=== PATIENT | male | born 1950 | race Caucasian/White ===

== ENCOUNTER 2017-11-01 21:29 | Inpatient (IN) | payer MEDICARE ==
[~2017-11-01] VITALS: Ht 177.8 cm; Wt 68.0 kg
--- NOTE | 2017-11-01 22:00 | NUR ---
GPSRN BROUGHT IN VIA AMBULANCE FROM [facility] FOR PATIENT'S BIZARRE BEHAVIOR. CONFUSED, DISORIENTED, ALTHOUGH COOPERATIVE. APPEARS ANXIOUS. ABLE TO ANSWER SOME QUESTIONS AND SOME HISTORY. STATED [place] NO FAMILY CONTACT PROVIDED. DENIES ANY MEDICAL HX EXCEPT HTN AND DM. UNABLE TO REMEMBER BP MEDS HE TAKES. NO MED RECON OBTAINED. SCATTERED DRY WOUNDS SEEN, PICTURED, REFUSED TO HAVE TOTAL BODY ASSESSMENT. AGREED ONLY TO PICTURES TAKEN ON HIS BACK, THIGHS , NECK, AND FACE., HEAD OCCIPITAL AREA.REFUSED TO REMOVE UNDERWEAR FOR FURTHER SKIN ASSESSMENT. SEEN ANTONI FURTHER DRY SCABS ON HIS LEFT SHOULDER, REFUSED TO HAVE PICTURE TAKEN. ONLY ON LIMITED AREAS. PROVIDED LATE SNACKSDINNER, ATE WELL.
[2017-11-01 22:30] VITALS: BP 170/91
[2017-11-01 22:35] VITALS: BP 170/91
[2017-11-01] MEDS ORDERED: LORAZEPAM 0.5 MG TABLET PO PRN (23:30)
[2017-11-01] MEDS ORDERED: MAGNESIUM HYDROXIDE 30 ML UDC PO PRN (23:30)
[2017-11-01] MEDS ORDERED: MAG HYDROX/AL HYDROX/SIMETH 30 ML UDC PO PRN (23:30)
[2017-11-01] MEDS ORDERED: ACETAMINOPHEN 325 MG TABLET PO PRN (23:30)
--- NOTE | 2017-11-02 00:15 | NUR ---
GPSRN ASLEEP, CLOSELY WATCHED.
--- NOTE | 2017-11-02 03:07 | NUR ---
GPSRN AWAKENED, NO NEEDS MADE. REMINDED OF TIME FRAME, WENT BACK TO HIS ROOM.
--- NOTE | 2017-11-02 06:30 | NUR ---
GPSRN REFUSED BLOOD DRAW. CN NOTIFIED. AGREED TO HAVE MRSA SWAB. WENT BACK TO SLEEP.
[2017-11-02 08:53] VITALS: BP 155/90
[2017-11-02 10:06] LABS: ALBUMIN 2.5 g/dL (3.4-5.0); BILIRUBIN,TOTAL 0.2 mg/dL (0.2-1.0); CALCIUM, SERUM 8.6 mg/dL (8.5-10.1); POTASSIUM 4.1 mmol/L (3.5-5.1); TOTAL PROTEIN, SERUM 7.5 g/dL (6.4-8.2)
--- NOTE | 2017-11-02 12:13 | NUR ---
WOUND CARE CONSULT: PT IS AMBULATORY AND CONTINENT. LIMITED ASSESSMENT OF SKIN TODAY DUE TO PT REFUSAL TO HAVE BUTTOCKS ASSESSED. PT NOTED TO HAVE MULTIPLE DRY SCABS. PT STATES THAT HE SCRATCHES HIS SKIN. FLAKES AND SCABS NOTED IN PT'S HAIR. DEFER TO . WILL SEE PRN. Addendum: 11/02/17 at 1214 by NIKI SALINAS WNDNU Amended: Links added.
[2017-11-02 16:00] VITALS: BP 157/93
[2017-11-02] MEDS: BENZTROPINE MESYLATE (1 MG) 1 MG TABLET PO SCH (16:32)
[2017-11-02] MEDS ORDERED: HALOPERIDOL 5 MG TABLET PO SCH (17:00)
[2017-11-02] MEDS: HALOPERIDOL 5 MG TABLET PO SCH (17:00)
--- NOTE | 2017-11-02 17:30 | NUR ---
GPS/RN PATIENT ADAMANTLY REFUSED HALDOL 5 MG X 3, EXPLAINED RISKS AND BENEFITS, WILL CONTINUE TO ENCOURAGE TO COMPLY WITH MD REGIMEN.
[2017-11-02 20:39] VITALS: BP 130/76
[2017-11-02] MEDS: TEMAZEPAM 7.5 MG CAPSULE PO PRN (21:54)
[2017-11-03 07:20] LABS: BASOPHILS % (AUTO) 0.5 % (0.0-2.0); EOSINOPHILS % (AUTO) 8.3 % (0.0-6.0); HEMATOCRIT 32 % (39-51); HEMOGLOBIN 10.8 g/dL (13.5-17.5); LYMPHOCYTES % (AUTO) 14.3 % (20.0-44.0); MEAN CORPUSCULAR HGB CONC 33 g/dl (31.0-36.0); MEAN CORPUSCULAR VOLUME 81 fL (80-96); MONOCYTES # (AUTO) 0.7 /CMM (0.1-1.30); MONOCYTES % (AUTO) 8.9 % (2.0-12.0); PLATELET COUNT (AUTO) 250 /CMM (150-450); RDW COEFFICIENT OF VARIATION 15.7 (11.5-15.0); RED BLOOD CELL COUNT(AUTO) 3.98 MIL/uL (4.5-6.0); WHITE BLOOD COUNT (AUTO) 7.3 K/uL (4.3-11.0)
[2017-11-03 07:46] LABS: CALCIUM, SERUM 8.6 mg/dL (8.5-10.1); POTASSIUM 3.9 mmol/L (3.5-5.1)
[2017-11-03 08:00] VITALS: BP 151/94
[2017-11-03] MEDS: HALOPERIDOL 5 MG TABLET PO SCH ×2 (09:00→17:02)
[2017-11-03] MEDS: BENZTROPINE MESYLATE (1 MG) 1 MG TABLET PO SCH ×2 (09:34→17:03)
[2017-11-03] MEDS: AMLODIPINE BESYLATE 5 MG TABLET PO SCH (09:35)
[2017-11-03 14:54] LABS: APPEARANCE,URINE CLEAR (CLEAR); BILIRUBIN,URINE NEGATIVE (NEGATIVE); BLOOD, URINE NEGATIVE Ery/uL (NEGATIVE); COLOR,URINE YELLOW (YELLOW); KETONES,URINE NEGATIVE (NEGATIVE); LEUKOCYTE ESTERASE ,URINE NEGATIVE (NEGATIVE); NITRITE, URINE NEGATIVE (NEGATIVE); PH,URINE 5.5 (5.0-8.0); PROTEIN,URINE NEGATIVE (NEGATIVE); UGLUCOSE NEGATIVE (NEGATIVE); UROBILINOGEN,URINE 0.2 EU/dL (0.2)
[2017-11-03 16:00] VITALS: BP 147/83
[2017-11-03 20:24] VITALS: BP 166/85
[2017-11-04 08:00] VITALS: BP 141/88
[2017-11-04] MEDS: AMLODIPINE BESYLATE 5 MG TABLET PO SCH (08:30)
[2017-11-04] MEDS: HALOPERIDOL 5 MG TABLET PO SCH ×2 (08:30→16:15)
[2017-11-04] MEDS: BENZTROPINE MESYLATE (1 MG) 1 MG TABLET PO SCH ×2 (08:30→16:15)
--- NOTE | 2017-11-04 10:28 | NUR ---
INITIAL DISCHARGE PLAN: Pt is homeless and stated "I want to remain where I am; I don't want to go to a senior care or a residential." SW will help form a safe and proper discharge in collaboration with MD.
--- NOTE | 2017-11-04 10:29 | NUR ---
DARLING faxed referral packet to [facility] Address: [address] [place] [address] fax: [phone].
[2017-11-04] MEDS: VITAMINS A AND D 56.7 GM TUBE TP PRN (12:17)
[2017-11-04 16:00] VITALS: BP 150/97
[2017-11-04 20:00] VITALS: BP 149/79
[2017-11-04] MEDS: TEMAZEPAM 7.5 MG CAPSULE PO PRN (22:01)
[2017-11-05 07:55] VITALS: BP 165/88
[2017-11-05] MEDS: AMLODIPINE BESYLATE 5 MG TABLET PO SCH (08:02)
[2017-11-05] MEDS: BENZTROPINE MESYLATE (1 MG) 1 MG TABLET PO SCH ×2 (08:02→17:21)
[2017-11-05] MEDS: HALOPERIDOL 5 MG TABLET PO SCH ×2 (08:02→17:21)
[2017-11-05] MEDS: diphenhydrAMINE HCL/ZINC ACET CREAM 28.3 GM TUBE TP PRN (08:46)
[2017-11-05 08:56] VITALS: BP 149/74
[2017-11-05 16:08] VITALS: BP 133/70
--- NOTE | 2017-11-05 19:35 | NUR ---
PT COMPLAINING OF ITCHING AND STATES THAT HE HAS LICE, FOUND LICE ON HIS LINENS, BED AND HAIR. CALLED DR. WOOD FOR TREATMENT ORDER. ORDERED PERMETHRIN SHAMPOO. NOTED AND CARRIED OUT.
[2017-11-05 20:00] VITALS: BP 128/66
[2017-11-05] MEDS ORDERED: PERMETHRIN 59 ML BOTTLE TP ONE (20:00)
[2017-11-06 08:00] VITALS: BP 150/82
[2017-11-06] MEDS: HALOPERIDOL 5 MG TABLET PO SCH ×2 (08:07→16:29)
[2017-11-06] MEDS: BENZTROPINE MESYLATE (1 MG) 1 MG TABLET PO SCH ×2 (08:07→16:29)
[2017-11-06] MEDS: AMLODIPINE BESYLATE 5 MG TABLET PO SCH (08:08)
[2017-11-06 16:18] VITALS: BP 146/84
[2017-11-06] MEDS: VITAMINS A AND D 56.7 GM TUBE TP PRN (18:04)
[2017-11-06 20:00] VITALS: BP 158/78
[2017-11-06] MEDS: TEMAZEPAM 7.5 MG CAPSULE PO PRN (23:58)
[2017-11-07 08:00] VITALS: BP 151/85
[2017-11-07] MEDS: AMLODIPINE BESYLATE 5 MG TABLET PO SCH (08:25)
[2017-11-07] MEDS: BENZTROPINE MESYLATE (1 MG) 1 MG TABLET PO SCH ×2 (08:25→16:08)
[2017-11-07] MEDS: HALOPERIDOL 5 MG TABLET PO SCH ×2 (08:25→21:37)
[2017-11-07 16:28] VITALS: BP 161/92
--- NOTE | 2017-11-07 18:02 | NUR ---
GPS RN NOTE: PT REFUSED TO SHOWER ASK X3 STILL REFUSING.
--- NOTE | 2017-11-07 19:30 | NUR ---
RECEIVED PATIENT IN BED AWAKE. AO X 2, ABLE TO MAKE NEEDS KNOWN. NO ACUTE DISTRESS NOTED. DENIES ANY PAIN AT THIS TIME. CALM AND COOPERATIVE. NO SI/HI. SAFETY REMINDERS GIVEN. ON LOW BED WITH BILATERAL UPPER SIDE RAILS UP. CALL [facility] WITHIN EASY REACH. CONTACT ISOLATION FOR LICE MAINTAINED. WILL CONTINUE TO MONITOR.
[2017-11-07 20:00] VITALS: BP 150/85
[2017-11-07 20:09] VITALS: BP 150/85
[2017-11-07] MEDS: diphenhydrAMINE HCL/ZINC ACET CREAM 28.3 GM TUBE TP PRN (23:37)
--- NOTE | 2017-11-08 06:15 | NUR ---
PATIENT ASLEEP, EASILY AROUSABLE. RESPIRATIONS EVEN. NO SIGNS OF PAIN NOTED. DUE MEDS GIVEN WITH NO ASE NOTED. NEEDS ATTENDED. SAFETY PRECAUTIONS AND COMFORT MEASURES IN PLACE. WILL GIVE REPORT TO DAY SHIFT FOR CONTINUITY OF CARE.
--- NOTE | 2017-11-08 07:13 | NUR ---
PATIENT REFUSED TO HAVE PHOTOS OF SKIN CONDITIONS TAKEN.
[2017-11-08 08:00] VITALS: BP 154/82
[2017-11-08] MEDS: HALOPERIDOL 5 MG TABLET PO SCH ×2 (08:36→21:16)
[2017-11-08] MEDS: BENZTROPINE MESYLATE (1 MG) 1 MG TABLET PO SCH ×2 (08:37→16:41)
[2017-11-08] MEDS: AMLODIPINE BESYLATE 5 MG TABLET PO SCH (08:37)
--- NOTE | 2017-11-08 14:36 | NUR ---
GPS RN NOTE: PT TOOK A SHOWER REFUSED FULL BODY SKIN ASSESSMENT. INFECTION CONTROL NOTIFIED. WILL CONTINUE MONITORING FOR SAFETY AND BEHAVIOR Q 15 MIN.
[2017-11-08 16:00] VITALS: BP 159/66
[2017-11-08 19:41] VITALS: BP 161/85
[2017-11-08 20:00] VITALS: BP 161/85
[2017-11-08] MEDS: hydrALAZINE HCL 25 MG TABLET PO SCH (21:16)
[2017-11-09] MEDS: hydrALAZINE HCL 25 MG TABLET PO SCH ×3 (05:08→21:15)
--- NOTE | 2017-11-09 06:33 | NUR ---
RN GPS CLOSING NOTES PATIENT IN ROOM ,AWAKE ALERT AND VERBALLY RESPONSIVE, ON ISOLATION PRECAUTIONS FOR LICE, PATIENT DENIED ITCHINESS THROUGHOUT SHIFT,RESPIRATIONS EVEN AND UNLABORED,ALL NEEDS ATTENDED AT THIS TIME, PATIENT REMAINS COMFORTABLE, SAFETY PRECAUTIONS RENDERED, REMAINS COMFORTABLE AT THIS TIME, WILL CONTINUE TO MONITOR AND ENDORSE TO NEXT SHIFT.
[2017-11-09 08:00] VITALS: BP 136/86
[2017-11-09] MEDS: HALOPERIDOL 5 MG TABLET PO SCH ×2 (09:21→21:16)
[2017-11-09] MEDS: AMLODIPINE BESYLATE 5 MG TABLET PO SCH (09:21)
[2017-11-09] MEDS: BENZTROPINE MESYLATE (1 MG) 1 MG TABLET PO SCH ×2 (09:21→17:58)
[2017-11-09 16:00] VITALS: BP 144/75
[2017-11-09 20:00] VITALS: BP 138/80
[2017-11-10 05:36] VITALS: BP 151/76
[2017-11-10] MEDS: hydrALAZINE HCL 25 MG TABLET PO SCH ×3 (05:38→21:51)
[2017-11-10 08:00] VITALS: BP 139/62
[2017-11-10] MEDS: HALOPERIDOL 5 MG TABLET PO SCH ×2 (09:55→21:51)
[2017-11-10] MEDS: AMLODIPINE BESYLATE 5 MG TABLET PO SCH (09:55)
[2017-11-10] MEDS: BENZTROPINE MESYLATE (1 MG) 1 MG TABLET PO SCH ×2 (09:57→17:00)
[2017-11-10 16:00] VITALS: BP 143/74
[2017-11-10 21:39] VITALS: BP 160/93
[2017-11-10] MEDS: TEMAZEPAM 7.5 MG CAPSULE PO PRN (22:52)
[2017-11-11] MEDS: hydrALAZINE HCL 25 MG TABLET PO SCH ×2 (05:21→12:10)
[2017-11-11 08:00] VITALS: BP_SYST 109; BP_SYST 130; BP_DIAS 59; BP_DIAS 78
--- NOTE | 2017-11-11 08:10 | NUR ---
MS MICHELLE BREAKFAST SERVED, DUE MEDS GIVEN,TOLERATED WELL.
--- NOTE | 2017-11-11 09:41 | NUR ---
DR. BECERRA GAVE AN ORDER TO D/C HOLD AND D/C TO [facility] AND TO FOLLOW UP WITH PSYCH AND MEDICAL DOCTORS.
[2017-11-11] MEDS: BENZTROPINE MESYLATE (1 MG) 1 MG TABLET PO SCH (09:42)
[2017-11-11] MEDS: AMLODIPINE BESYLATE 5 MG TABLET PO SCH (09:42)
[2017-11-11] MEDS: HALOPERIDOL 5 MG TABLET PO SCH (09:45)
--- NOTE | 2017-11-11 10:22 | NUR ---
DR. ALLYSSA VALLE MADE AWARE OF THE DISCHARGE AND SIAD OK FOR DISCHARGE AND WROTE A PRESCRIPTIONS.
--- NOTE | 2017-11-11 10:37 | NUR ---
DISCHARGE PLAN: Pt being discharged at 2:30 pm to [facility] Address: [address] [place] [address] . Pt will report at 4:30pm to [facility] where he will meet with an palliative care coordinator for bed assignment. Pt denied suicidal/homicidal ideations and denied visual/auditory hallucinations. Pts mood and affect was calm and cooperative and appeared to be happy for discharge. Pt is homeless with no family. Pt will be given 3 bus tokens for transportation to [facility]. Pt was referred to Hand Scraper: [facility] [address] [place] [address] and Psychiatrist: [facility] [address] [place] [id number] . The multidisciplinary exitcare form was done, printed, signed, and given to the patient.
[2017-11-11 12:10] VITALS: BP 159/79
--- NOTE | 2017-11-11 14:35 | NUR ---
MS RN PATIENT DISCHARGED, DISCHARGE INSTRUCTIONS GIVEN AND UNDERSTOOD, RX GIVEN TO PATIENT, DENIES PAIN, SUICIDAL PLANS,ALL NEEDS ATTENDED. WENT VIA BUS TOKEN.
== END 2017-11-11 14:30 | disposition home or self-care (01) | DRG 885 ==
LOC: GPS 21:29
PROVIDERS: ATTEND Psychiatry & Neurology Psychiatry
DX: F29 Unspecified psychosis not due to a substance or known physiological condition (principal); N17.0 Acute kidney failure with tubular necrosis; E44.0 Moderate protein-calorie malnutrition; E88.09 Other disorders of plasma-protein metabolism, not elsewhere classified; D63.8 Anemia in other chronic diseases classified elsewhere; B85.0 Pediculosis due to Pediculus humanus capitis; F20.0 Paranoid schizophrenia; F41.9 Anxiety disorder, unspecified; I10 Essential (primary) hypertension; S20.419A Abrasion of unspecified back wall of thorax, initial encounter; S40.219A Abrasion of unspecified shoulder, initial encounter; S40.819A Abrasion of unspecified upper arm, initial encounter; X58.XXXA Exposure to other specified factors, initial encounter; Y93.9 Activity, unspecified; Y92.9 Unspecified place or not applicable; Z73.6 Limitation of activities due to disability; Z68.21 Body mass index [BMI] 21.0-21.9, adult; L85.3 Xerosis cutis
CPT/HCPCS: 36415; 80048-TC; 80053-TC; 81000-TC; 85025-TC; 87081-TC; 87086-TC; Z7610